=== PATIENT | male | born 1995 | race Caucasian/White ===

== ENCOUNTER 2017-10-08 12:55 | Emergency (ER) | payer BC, OTHER ==
[~2017-10-08] VITALS: Ht 165.1 cm; Wt 83.4 kg
[~2017-10-08 12:55] MED LIST: PRLSR20 PO
[2017-10-08 13:01] VITALS: TEMP 37; Ht 165.1 cm; Wt 83.4 kg
--- NOTE | 2017-10-08 14:09 | EMERGENCY ROOM VISIT NOTE ---
ED Visit Note First contact with patient: 13:04 CHIEF COMPLAINT: Left ankle injury one hour ago HISTORY OF PRESENT ILLNESS: Patient is an otherwise healthy 22-year-old white male who presents to the emergency department for evaluation of left ankle pain after an injury about an hour ago. He was wearing tall leather work boots, when a stack of metal springer slid and fell, causing an inversion injury to the left ankle. Complains of swelling and pain. The patient is able to bear weight on the foot but with pain. Constant pain, moderate to severe, worse with movement, weight bearing, and the dependent position. No knee pain. The patient applied ice. He rates his discomfort a 5/10. REVIEW OF SYSTEMS: Review of systems as per HPI. All other systems reviewed were negative. At least 6 systems reviewed. PMH: Electronic medical records are reviewed and summarized as above/below. See Problem List. SOCIAL HISTORY: Patient lives at home. Employed. PHYSICAL EXAM: Vital Signs: Reviewed Nurse's notes. MENTAL STATUS: Alert, oriented, and cooperative. The left ankle is swollen and tender over the lateral aspect but the skin is intact and there is no ligamentous instability. No pain over the 5th metatarsal or fibular head. Lisfranc joint is negative. There is no deformity. The foot and toes are warm and well-perfused. Sensation to pain and light touch is intact. EMERGENCY DEPARTMENT COURSE: X-ray reveals no fracture, only the soft tissue swelling. A compression sleeve and gel splint were applied to the ankle under my direction and the position was satisfactory. Crutches were issued and patient was instructed on a non weight bearing gait. Differential diagnosis include foot verses ankle sprain/fracture, contusion, dislocation. Medication reconciliation: I attest that I have personally reviewed the patient' s current medication list. Blood pressure screening : Patient was found to have normal blood pressure on screening and does not require follow-up. Problem List Medical Problems: (1) Abdominal pain Status: Resolved (2) Stool mucus Status: Resolved (3) Testicle pain Status: Resolved Current/Historical Medications No Active Prescriptions or Reported Meds Allergies Coded Allergies: No Known Allergies (Verified , 10/08/17) Vital Signs Date Time Temp Pulse Resp B/P (MAP) Pulse Ox O2 Delivery O2 Flow Rate FiO2 10/08/17 14:24 76 20 126/74 96 10/08/17 13:01 37.0 87 18 136/79 99 Room Air Departure Information Impression Primary Impression: Left ankle sprain Prescriptions No Active Prescriptions or Reported Meds Referrals No Doctor, Assigned (PCP) Patient Instructions [facility] Additional Instructions Ibuprofen(Motrin, Advil) may be used for fever or pain. Use 600mg every six hours as needed. Take with food. Avoid using more than 2400mg in a 24 hour period. Do not use 2400mg per day for more than three consecutive days without physician direction. Prolonged inappropriate use can lead to stomach upset or ulcers. This medication can be taken if you need to drive, work, or perform activities which may be dangerous when taking narcotic pain medication. (AND/OR) Acetaminophen(Tylenol) may be used for fever or pain. Use 1000mg every six hours as needed. Avoid using more than 3000mg in a 24 hour period. This medication can be taken if you need to drive, work, or perform activities which may be dangerous when taking narcotic pain medication. Ice compresses for 20 minutes at a time four times daily for 2-3 days. Use the gel splint and crutches as instructed. Rest and elevate your injury. Continue current medications. Return to the ER immediately for any numbness, tingling, severe pain, extreme swelling in the extremity or as needed. Followup with your family doctor or orthopedic surgery if no improvement in 5-7 days.
--- NOTE | 2017-10-08 14:19 | DIAGNOSTIC IMAGING REPORT ---
LEFT ANKLE 3 VIEWS HISTORY: Left ankle pain. COMPARISON: None. FINDINGS: There is no fracture or dislocation. Mild soft tissue swelling. No radiopaque foreign bodies. IMPRESSION: No fractures. Electronically signed by: Jose F Ward M.D. 10/08/2017 2:18 PM Dictated Date/Time: 10/08/2017 2:16 PM
[2017-10-08 14:24] VITALS: BP 126/74; PULSE 76; O2SAT 96
== END 2017-10-08 14:25 | disposition home or self-care (01) ==
LOC: C.EDB 12:56 → C.EDD 14:25
DX: S93.402A Sprain of unspecified ligament of left ankle, initial encounter (principal); W20.8XXA Other cause of strike by thrown, projected or falling object, initial encounter